=== PATIENT | female | born 1970 | race Caucasian/White ===

== ENCOUNTER 2017-02-02 07:06 | Day surgery (SDC) | payer OTHER ==
[~2017-02-02 07:06] MED LIST: Buffered Lidocaine 0.9% SYRIN* 5 ML/SYR SYRINGE INTRADERM ONE; Dexamethasone IV* 4 MG/ML 1 ML (4 MG) IV SLOW PU ONE; Famotidine IV* 10 MG/ML 2 ML (20 mg) IV ONE; Scopolamine 1.5 mg* PATCH TRANSDERM ONE
[2017-02-02] MEDS ORDERED: Famotidine IV* 10 MG/ML 2 ML (20 mg) ONE (07:26)
[2017-02-02] MEDS ORDERED: Dexamethasone IV* 4 MG/ML 1 ML (4 MG) ONE (07:26)
[2017-02-02] MEDS ORDERED: Buffered Lidocaine 0.9% SYRIN* 5 ML/SYR SYRINGE ONE (07:27)
[2017-02-02] MEDS ORDERED: Scopolamine 1.5 mg* PATCH ONE (07:27)
[2017-02-02 07:50] LABS: Hematocrit 37 % (35-47); Hemoglobin 12.1 g/dl (12.0-16.0); Mean Corpuscular HGB Conc 33 g/dl (31-36); Mean Corpuscular Hemoglobin 30 pg (27-31); Mean Corpuscular Volume 89 fL (80-97); Mean Platelet Volume 8 um3 (7.4-10.4); Red Blood Count 4.11 10^6/ul (4.0-5.4); Red Cell Distribution Width 14 % (10.5-15); White Blood Count 3.3 10^3/ul (3.5-10.8)
[2017-02-02 07:51] LABS: Add Diff/Slide Review? Slide Review Added; Comments Flag Yes
[2017-02-02] MEDS ORDERED: fentaNYL* 50 MCG/ML 2 ML VIAL (100 MCG VIAL) ONE (08:01)
[2017-02-02] MEDS ORDERED: Midazolam* 1 MG/ML 2 ML VIAL (2 MG) ONE (08:01)
[2017-02-02] MEDS ORDERED: HYDROmorphone INJ* 1 MG/ML CARPUJECT SYRINGE IV PRN (08:59)
[2017-02-02] MEDS ORDERED: HYDROcodone/ACETAMIN 5-325 MG* 1 TAB PO PRN (08:59)
[2017-02-02] MEDS ORDERED: DiMENhydriNATE IV* 50 MG/ML VIAL IV PUSH PRN (08:59)
[2017-02-02] MEDS ORDERED: Ondansetron INJ* 2 MG/ML VIAL IV PRN (08:59)
[2017-02-02] MEDS ORDERED: fentaNYL* 50 MCG/ML 2 ML VIAL (100 MCG VIAL) IV PRN (08:59)
[2017-02-02] MEDS ORDERED: oxyCODONE/Acetamin 5/325 MG* TAB ONE (10:07)
[2017-02-02 10:10] VITALS: BP 112/72
--- NOTE | 2017-02-03 03:40 | OP ---
DATE OF OPERATION: 02/02/17 - [facility] DATE OF : 70 SURGEON: Jaya Pruitt MD TERRAZZO HELPER: None. ANESTHESIOLOGIST: Chhaya Nixon MD ANESTHESIA: General endotracheal tube. PRE-OP DIAGNOSIS: Menorrhagia. POST-OP DIAGNOSIS: Menorrhagia. OPERATIVE PROCEDURE: D and C, hysteroscopy, endometrial ablation. ESTIMATED BLOOD LOSS: Minimal. SPECIMEN: Includes endometrium. FINDINGS: Include a normal cavity. No polyps or fibroids visualized. DESCRIPTION OF PROCEDURE: Patient identified, procedure identified as D and C, hysteroscopy, and MyoSure possible endometrial ablation. The patient was taken to the operating room, prepped and draped in the usual fashion in dorsal lithotomy position under general anesthesia. Two single-tooth tenaculums were placed on the anterior lip of the cervix. The cervix was easily sounded to 9 cm. The endocervix was sounded to 3 cm, making the cavity length 6 cm. The MyoSure hysteroscope was then inserted and the normal cavity was found. The hysteroscope was removed and a sharp curette was inserted and sharp curettage performed with a gritty sensation felt throughout the circumference and NovaSure device was opened. The array was checked. The device was placed with an opening width of 4.3 with manipulation to 4.4, power setting of 145. The CO2 perforation test was performed and the device passed. The device was enabled. NovaSure ablation took place for 52 seconds. At the end of the procedure, the device was removed and the MyoSure hysteroscope was reinserted and a good ablation was noted throughout the cavity. All instruments were removed from the vagina. All sponge and instrument counts were correct and the patient returned to the recovery room in stable condition. [id number]/[facility] #: [id number] [facility]
[2017-02-05] MEDS ORDERED: Scopolomine PATCH Remove* 1 NOTE MISC PATCH OFF ONE (06:00)
== END 2017-02-02 10:32 | disposition home or self-care (01) ==
LOC: OR 07:06
PROVIDERS: ATTEND Obstetrics & Gynecology
DX: N92.0 Excessive and frequent menstruation with regular cycle (principal); N84.0 Polyp of corpus uteri
CPT/HCPCS: 36415; 81025; 85025; 86850; 86900; 86901; 88305; A9270-GY; J1100; J2250; J3010